=== PATIENT | female | born 1995 | race Hispanic/Latino ===

== ENCOUNTER 2024-07-27 21:58 | Emergency (ER) | payer OTHER ==
[~2024-07-27] VITALS: Ht 154.9 cm; Wt 63.0 kg
[2024-07-27 23:11] VITALS: PULSE 63; RESP 16; TEMP 98.2
[2024-07-28 00:23] VITALS: BP 116/75; PULSE 70; RESP 17; TEMP 98; O2SAT 97
== END 2024-07-28 00:25 | disposition home or self-care (01) ==
LOC: ER 22:10
DX: R00.2 Palpitations (principal); R07.89 Other chest pain; G56.02 Carpal tunnel syndrome, left upper limb; R20.0 Anesthesia of skin
CPT/HCPCS: 93005; 99283